=== PATIENT | female | born 1990 | race African-American/Black ===

== ENCOUNTER 2021-04-16 18:45 | Emergency (ER) | payer OTHER, SELFPAY ==
[2021-04-16 18:49] VITALS: BP 135/71; PULSE 76; RESP 16; TEMP 36.1; O2SAT 100; BMI 32.1
[2021-04-16 19:58] LABS: Glucose Urine UA NEG (NEG); Leukocyte Esterase Urine NEG (NEG); Nitrite Urine NEG (NEG); PH 7.5 (5.0-8.0); Specific Gravity - Urine 1.015 (1.005-1.025); Urine Blood NEG (NEG); Urine Ketones 5 MG/DL (NEG); Urine Protein NEG (NEG-TRACE)
[2021-04-16 20:00] LABS: Appearance Urine CLOUDY; Color Urine YELLOW
[2021-04-16 20:03] LABS: UPreg QC Valid YES; Urine Pregnancy NEGATIVE (NEGATIVE)
--- NOTE | 2021-04-16 20:23 | ED.ABDPAIN ---
HPI - Abdominal Pain General Chief Complaint: Abdominal Pain Stated Complaint: abd pain Time Seen by Provider: 04/16/21 20:11 Source: patient Mode of arrival: ambulatory Limitations: no limitations History of Present Illness HPI narrative: 30-year-old female who presents emergency department for evaluation of lower abdominal pain x2 weeks. Patient states that she gets the pain daily, the pain is intermittent but then last long periods of time, she describes the pain as a sharp pain which is 10/10 at its worst. She denied fever, chills, nausea, vomiting, frequency, urgency or dysuria. She states that she had some nausea in the beginning of this episode but then it resolved. The patient denies any vaginal discharge. She states this is the 1st episode of this type of pain. The patient is sexually active, she has 1 sexual partner. Related Data Previous Rx's Medication Instructions Recorded doxycycline hyclate 100 mg PO Q12H 10 Days #20 tab 04/16/21 metronidazole [Flagyl] 500 mg PO BID 10 Days #20 tab 04/16/21 Allergies Allergy/AdvReac Type Severity Reaction Status Date / Time No Known Allergies Allergy Verified 04/16/21 18:49 [No Known Allergies*] Review of Systems Review of Systems Yes all other systems are reviewed and are negative Physical Exam Vital Signs: Vital Signs: Last Vital Signs Temp 97.0 F 04/16/21 18:49 Pulse 76 04/16/21 18:49 Resp 16 04/16/21 18:49 BP 135/71 04/16/21 18:49 Pulse Ox 100 04/16/21 18:49 Body Mass Index 32.1 Const: General: cooperative Orientation/consciousness: oriented to person and oriented to place Limitations: no limitations HENMT: Head: Yes normal to inspection, Yes normocephalic and Yes atraumatic Ears: external ears normal General nose exam: Normal external nose present Face and sinus: Yes normal facial exam Mouth: Normal oral and palatal mucosa present Throat: Yes posterior oropharynx normal Eyes: Periorbital: periorbital findings normal Eyelids: Yes eyelids normal Conjunctivae: conjunctivae normal Sclerae: sclerae normal Corneas: corneas normal Pupils: Equal, round and reactive pupils present Direct Ophthalmoscopy: normal light reflex Neck: Neck: Yes full ROM, Yes no lymphadenopathy, Yes no meningeal signs, Yes trachea midline and Yes supple Chest: Chest palpation & inspection: normal inspection of the chest and normal palpation of entire chest wall Resp: Effort & Inspection: normal respiratory effort and able to speak in complete sentences Auscultation: clear to auscultation bilaterally Cardio: Rate: regular rate Rhythm: regular rhythm Heart sounds: S1 normal heart sound present, S2 normal heart sound present and no murmurs GI: Inspection: Yes normal to inspection Palpation (GI): Soft to palpation, Tenderness to palpation present (GI) suprapubicly ( Moderate), no guarding, not rigid and No hepatosplenomegaly present : General: Yes no CVA tenderness Back/Spine/Pelvis: Back: no CVA tenderness Cervical Spine: normal cervical lordosis Thoracic/Lumbar Spine: thoracic and lumbar spine normal to inspection Skin: Lesions: no lesions Rashes: no rashes Wounds: no wounds Neuro: General: oriented to person, oriented to place and no meningeal signs Cranial nerves: Yes CN's II-XII intact bilaterally and Yes Equal, round and reactive pupils present Cognition (Neuro): normal cognition Motor exam (neuro): 5/5 motor strength present throughout Extrem: General: Yes normal to inspection and Yes full ROM Psych: Appearance: well kempt Mental Status: mental status grossly normal Speech and movement: Normal speech and movement present Affect: normal affect Attitude: cooperative Thought process: Normal thought process present Thought content: Normal thought content present Course Course Course Narrative: 30-year-old female who presents emergency department for evaluation intermittent,lower abdominal pain x2 weeks. physical examination did reveal suprapubic tenderness, pelvic examination did reveal a vaginal and cervical discharge with moderate to severe cervical motion tenderness moderate tenderness palpation of the uterus and adnexa bilaterally. The patient's clinical examination is consistent with pelvic inflammatory disease. Vaginal cervical swabs were sent for gonorrhea and chlamydia PCR, Trichomonas prep and bacterial vaginosis panel. The patient will be treated in the ED for PID with ceftriaxone 500 mg IM with lidocaine, doxycycline oral mg orally and a metronidazole 500 mg orally. Patient was given a prescription for doxycycline 100 mg twice a day for 10 days, metronidazole 500 mg twice a day for 10 days. She was advised to take Tylenol and ibuprofen for pain. She will need to follow-up with her hand hose cutter in 7-10 days for re-evaluation and to check her pending lab results. The patient was given verbal and printed instructions prior to discharge. The patient was advised to follow-up with their PCP in 2 days and to return to the emergency department if their symptoms get worse or if they develop any new symptoms that are concerning to them MDM - Abdominal Pain Lab Data Labs: Lab Results 04/16/21 04/16/21 Range/Units 19:49 19:49 Urine Color YELLOW Urine Appearance CLOUDY Urine pH 7.5 (5.0-8.0) Ur Specific Jackson 1.015 (1.005-1.025) Urine Protein NEG (NEG-TRACE) MG/DL Urine Glucose (UA) NEG (NEG) MG/DL Urine Ketones 5 (NEG) MG/DL Urine Blood NEG (NEG) Urine Nitrite NEG (NEG) Ur Leukocyte Esterase NEG (NEG) Urine Test NEGATIVE (NEGATIVE) Discharge Plan Discharge Clinical Impression: Acute pelvic inflammatory disease Additional Instructions: Your presentation and physical findings are consistent with pelvic inflammatory disease (PID). Approximately 30% of the time, pelvic inflammatory disease is caused by sexually transmitted diseases such as Trichomonas, gonorrhea or chlamydia. Approximately 70% of the time, pelvic inflammatory disease is caused by abnormal bacteria (anaerobic bacteria) in your vagina that can cause an infection You received ceftriaxone 500 mg intramuscularly here in the emergency department. You also received her 1st dose of doxycycline 100 mg and metronidazole 500 mg. Take doxycycline 100 mg, 1 pill twice a day for 10 days. Take metronidazole 500 mg, 1 pill twice a day for 10 days. These 3 antibiotics treat sexually transmitted diseases such as gonorrhea, chlamydia and Trichomonas as well as anaerobic bacteria that can cause pelvic inflammatory disease. Take ibuprofen 200 mg pills, 3 pills every 6 hours as needed for pain. Take Tylenol (acetaminophen) 500 mg pills, 2 pills every 4 to 6 hours as needed for pain. Follow-up with your gynecology in 7-10 days. If your hand hose cutter cannot see you, [facility] The doctor that follows up will need to review the following results with you: Bacterial vaginosis testing Gonorrhea and chlamydia ( PCR test) Trichomonas testing Your doctor should test you for syphilis and for HIV as well if they think it is appropriate. Please return to the emergency department if your symptoms get worse or if you develop any symptoms that are concerning to you. Prescriptions: New metronidazole [Flagyl] 500 mg tablet 500 mg PO BID 10 Days Qty: 20 RF: 0 doxycycline hyclate 100 mg tablet 100 mg PO Q12H 10 Days Qty: 20 RF: 0 PMFSH Past Medical History [facility] Narrative: Past medical history: None. Past surgical history: x2 with the last in 2019. social history: She denies tobacco use, she states that she only occasionally drinks alcohol. She denies drug use. Surgical History (Updated 04/16/21 @ 18:52 by Shirley Cespedes RN) Tubal ligation status Social History Social History Patient Tobacco Use Status: Current everyday Tobacco user Use of substances other than those prescribed or required for medical reasons: No Substance Use Type: Marijuana Substance Use Frequency: Occasionally Advance Directives: No Advance Directives Information Provided: No
--- NOTE | 2021-04-16 20:33 | PC.NURSE ---
THIS PCT SET UP AND ASSIST DR BULLOCK WITH PATIENT PELVIC EXAM .
[2021-04-16 21:25] VITALS: BP 108/68; PULSE 64; RESP 16; O2SAT 98
[2021-04-16] MEDS: cefTRIAXone sodium 500 MG, Lidocaine HCl 1 % MPF 1 ML IM (21:30)
[2021-04-16] MEDS: metroNIDAZOLE 500 MG TABLET PO (21:31)
[2021-04-17 11:36] LABS: BV Int Neg Control Negative (Negative); BV Int Pos Control Positive (Positive)
[2021-04-17 11:47] LABS: CT PCR NOT DETECTED (Not Detect.); NG PCR NOT DETECTED (Not Detect.)
== END 2021-04-16 21:47 | disposition home or self-care (01) ==
PROVIDERS: Emergency Provider Emergency Medicine Emergency Medical Services
DX: N73.0 Acute parametritis and pelvic cellulitis (principal); R10.30 Lower abdominal pain, unspecified
CPT/HCPCS: 81003; 81025; 87480; 87491; 87510; 87591; 87660; 96372; 99284; J0696